=== PATIENT | male | born 1990 | race Caucasian/White ===

== ENCOUNTER → 2018-08-05 | Day surgery (SDC) | payer BC, OTHER ==
[~2018-08-05] MED LIST: Bacitracin Zinc Ointment 30 gm TUBE ONE; Bupivacaine PF 0.5% 30 ML VIAL ONE; Dexamethasone 20 MG/5 ML VIAL ONE; Fentanyl 100 MCG/2 ML VIAL ONE; Ketorolac Tromethamine 30 MG/ML VIAL ONE; Lidocaine 1% PF 5 ML VIAL ONE; Midazolam HCl 2 mg/2 ml Vial ONE; Ondansetron PF 4 MG/2 ML Vial ONE; PROPOFOL 200 MG/20 ML VIAL ONE; Sodium Chloride 0.9% 0 ML ONE
[2018-08-05 13:59] LABS: #Basophils 0.1 thou/uL (0.0-0.2); #Eosinphils 0.6 thou/uL (0.0-0.7); #Lymphocytes 4.5 thou/uL (1.20-3.40); #Monocytes 0.6 thou/uL (0.11-0.59); #Neutrophils 4.4 thou/uL (1.40-6.50); %Basophils 1.1 % (0.0-1.0); %Lymphocytes 43.8 % (21.0-51.0); %Monocytes 5.8 % (0.0-10.0); %Neutrophils 43.3 % (42.0-75.0); Hemoglobin 14.9 g/dL (14.0-18.0); Mean Corpuscular Hemoglobin 31.1 pg (27.0-31.0); Mean Corpuscular Volume 94.1 fL (78.0-98.0); Mean Platelet Volume 6.8 fL (7.4-10.4); Platelet Count 341 thou/uL (130-400); RBC Distribution Width 11.8 % (11.5-14.5); Red Blood Cell (RBC) Count 4.81 mill/uL (4.70-6.10); White Blood Cell (WBC) Count 10.2 thou/uL (4.8-10.8)
[2018-08-05 14:15] LABS: Acetaminophen Less than 6.0 mcg/mL (10.0-30.0); Alcohol Less than 10 mg/dL (Less than 10); Salicylate Less than 8.0 mg/dL (15.0-30.0)
[2018-08-05 14:16] LABS: ALT (SGPT) 20 U/L (8-55); AST (SGOT) 18 U/L (5-34); Albumin 4.4 g/dL (3.5-5.0); Alkaline Phosphatase 61 U/L (40-150); Anion Gap 13 mmol/L (10-20); BUN (Urea Nitrogen) 16 mg/dL (8.9-20.6); Bilirubin, Total 0.4 mg/dL (0.2-1.2); Calc. Creatinine Clearance 0 mL/min (70-130); Calcium 9.5 mg/dL (7.8-10.44); Carbon Dioxide 25 mmol/L (22-29); Chloride 104 mmol/L (98-107); Estimated GFR-MDRD 81; Globulin 3.1 g/dL (2.4-3.5); Glucose 83 mg/dL (70-105); Potassium 4.2 mmol/L (3.5-5.1); Protein, Total 7.5 g/dL (6.0-8.3); Sodium 138 mmol/L (136-145)
--- NOTE | 2018-08-05 20:07 | RAD ---
LEFT THUMB TWO VIEWS: 08/05/18 HISTORY: Fracture left thumb FINDINGS/IMPRESSION: Two spot fluoroscopic intraoperative images of the left thumb demonstrate interval reduction and inte rnal fixation of the comminuted fracture of the proximal phalanx since 07/30/18. POS: KENZIE
--- NOTE | 2018-08-06 08:53 | OP ---
DATE OF PROCEDURE: 08/05/2018 PREOPERATIVE DIAGNOSIS: Displaced 4-part left thumb proximal phalanx fracture with marked angulation and comminution. POSTOPERATIVE DIAGNOSIS: Displaced 4-part left thumb proximal phalanx fracture with marked angulation and comminution with marked interfragmentary comminution in at least 4 different fracture lines and sagittal plane 45 degrees apex palmar angulation. PROCEDURE PERFORMED: Open reduction and internal fixation using complex technique, for 4-part thumb proximal phalanx fracture. These include; 1. Use of interfragmentary screws. 2. Provisional fixation with K-wires. 3. Subtendinous plane dissection to place a small T-plate. ANESTHESIA: 1. General LMA technique. 2. 20 mL of 0.5% Marcaine block; 10 given before incision and 10 given after incision was closed without epinephrine, metacarpophalangeal joint level. ESTIMATED BLOOD LOSS: 10 mL. INDICATIONS: The patient had accident at work, a mechanical device caught his thumb causing the crush fracture almost 4 days ago. DESCRIPTION OF PROCEDURE: After successful general endotracheal anesthesia, limb was prepped and draped. Time-out was done appropriately. C-arm brought into the field, he was given the first part of his block and then we attempted to closed reduction, could not achieve complete correction of the sagittal plane deformity and there was some loss of height, so we decided to do open procedure. We exsanguinated the limb, inflated the tourniquet to 250 mmHg pressure, then made a zigzag incision down to the extensor tendon. Extensor tendon was opened in its midline, so was the periosteum, but this was spared and the periosteal fat layer was preserved. We then visualized the fracture, performed the reduction of the distal 3 fragments to each other, placed a lag screw across them approximately 5 mm short of the joint lines, so we could place a plate as needed distal to that. We irrigated the hematoma. Used complex fracture mechanism to include interfragmentary lag screws, placement of a subtendinous plate, and then used multiple K-wires to hold the fracture anatomic and then we placed a plate avoiding any joint space in the frontal sagittal plane, distal and proximal and palmar. We were able to place 2 screws in the comminuted fracture line, made a way for the comminuted fracture line in midportion and had 4 cortices proximal and 6 cortices distal to the fracture. Then with C-arm fluoroscopy, there was no gross motion and there was excellent position of the final screws and plate. We released the tourniquet, the C-arm was excused, obtained hemostasis. I gave the last 10 of the Marcaine in the same location of the first 10. We closed the subtendinous fat layer with a running 4-0 Vicryl undyed, we closed the extensor mechanism with a running 4-0 Prolene, and we closed the subcutaneous tissues with a running 4-0 Monocryl and then 4-0 nylon was used in interrupted mattress pattern to close the epidermal layer. The patient left the operating room without evidence of anesthetic or operative complication. Job ID: [id number]
== END ==
LOC: ERS 11:24
PROVIDERS: ATTEND Orthopaedic Surgery Hand Surgery
PROC: 0PSS04Z Reposition Left Thumb Phalanx with Internal Fixation Device, Open Approach (ICD-10-PCS; principal; 2018-08-05)
DX: S62.512A Displaced fracture of proximal phalanx of left thumb, initial encounter for closed fracture (principal); F17.210 Nicotine dependence, cigarettes, uncomplicated; W31.9XXA Contact with unspecified machinery, initial encounter; Y99.0 Civilian activity done for income or pay
CPT/HCPCS: 36415; 76000; 80053; 80307; 85025; 86850; 86900; 86901; 99285; C1713; J0690; J1100; J1885; J2001; J2250; J2405; J2704; J3010; J3490; S0020

== ENCOUNTER 2019-03-13 06:22 | Outpatient (CLI) | payer OTHER ==
[2019-03-13 08:43] LABS: #Basophils 0.1 thou/uL (0.0-0.2); #Eosinphils 0.7 thou/uL (0.0-0.7); #Lymphocytes 3.5 thou/uL (1.20-3.40); #Monocytes 0.7 thou/uL (0.11-0.59); #Neutrophils 4.4 thou/uL (1.40-6.50); %Basophils 0.6 % (0.0-1.0); %Lymphocytes 37.1 % (21.0-51.0); %Neutrophils 47.3 % (42.0-75.0); Hemoglobin 15.6 g/dL (14.0-18.0); Mean Corpuscular HGB CONC 34.2 g/dL (32.0-36.0); Mean Corpuscular Hemoglobin 31.9 pg (27.0-31.0); Mean Corpuscular Volume 93.3 fL (78.0-98.0); Mean Platelet Volume 7.2 fL (7.4-10.4); Platelet Count 295 thou/uL (130-400); RBC Distribution Width 11.5 % (11.5-14.5); Red Blood Cell (RBC) Count 4.91 mill/uL (4.70-6.10); White Blood Cell (WBC) Count 9.3 thou/uL (4.8-10.8)
== END 2019-03-13 06:23 | disposition home or self-care (01) ==
LOC: LABBT 06:22
PROVIDERS: ATTEND Orthopaedic Surgery Hand Surgery
DX: Z01.812 Encounter for preprocedural laboratory examination (principal); S62.502A Fracture of unspecified phalanx of left thumb, initial encounter for closed fracture
CPT/HCPCS: 85025

== ENCOUNTER 2019-03-17 09:29 | Day surgery (SDC) | payer OTHER ==
[2019-03-13 08:20] VITALS: BMI 38.7
[2019-03-17] MEDS ORDERED: Dexamethasone 20 MG/5 ML VIAL ONE (10:12)
[2019-03-17] MEDS ORDERED: PROPOFOL 200 MG/20 ML VIAL ONE (10:12)
[2019-03-17] MEDS ORDERED: Ondansetron PF 4 MG/2 ML Vial ONE (10:12)
[2019-03-17] MEDS ORDERED: Lidocaine 1% PF 5 ML VIAL ONE (10:12)
[2019-03-17] MEDS ORDERED: Ketorolac Tromethamine 30 MG/ML VIAL ONE (10:12)
[2019-03-17] MEDS ORDERED: Bacitracin Zinc Ointment 30 gm TUBE ONE (10:55)
[2019-03-17] MEDS ORDERED: Betamet Acet/Betamet Na Ph 30 MG/5 ML VIAL ONE (10:55)
[2019-03-17] MEDS ORDERED: Sodium Chloride 0.9% 10 ML ONE (10:55)
[2019-03-17] MEDS ORDERED: Bupivacaine PF 0.5% 30 ML VIAL ONE (10:55)
[2019-03-17] MEDS ORDERED: Fentanyl 100 MCG/2 ML VIAL ONE (11:11)
[2019-03-17] MEDS ORDERED: Midazolam HCl 2 mg/2 ml Vial ONE (11:11)
--- NOTE | 2019-03-17 14:40 | OP ---
DATE OF PROCEDURE: 03/17/2019 PREOPERATIVE DIAGNOSIS: Left thumb painful suture and suture granuloma. POSTOPERATIVE DIAGNOSIS: Left thumb painful suture and suture granuloma. FINDINGS: 5 mm x 2 mm painful thumb dorsal extension crease at the IPJ level of thumb suture with suture granuloma. PROCEDURES PERFORMED: 1. Excision of painful suture. 2. Excision of painful suture granuloma. SPECIMEN SENT: Suture and suture granuloma, 5 x 2 mm. TOURNIQUET TIME: 5 minutes. ESTIMATED BLOOD LOSS: 2 mL. INDICATIONS: The patient now over 8 months after open reduction and internal fixation of a very complex thumb proximal phalanx fracture, which healed with plate and screws. At the very end of incision, approximately 5 mm of the zigzag suture, but midline in terms of medial and lateral at the interphalangeal joint. He had a 2 mm painful mass, which we felt was a suture granuloma. He did not have hardware problems. DESCRIPTION OF PROCEDURE: After successful general endotracheal anesthesia, the limb was prepped and draped. Time-out was done appropriately. We injected a total of 50 mL of 0.5% Marcaine at the metacarpophalangeal joint level block to include dorsal area. We then exsanguinated the limb, inflated the tourniquet to 250 mmHg pressure. We began with a V-shaped incision, centered on the mass. We extended the residual incision by 5 mm. We carried this through skin and subcutaneous tissue, dissected dermis from all underlying scar. We found the granuloma, and deep to that was a suture oriented obliquely 3 to 4 mm just to the subcutaneous skin. We made a small incision in the skin, removed part of the granuloma, that was protruding deepest into epidermis. The entire granuloma was approximately 5 x 2.5 mm. Once this was done, extensor tendon was intact. We released the tourniquet, obtained hemostasis. We then put 3 mL of Celestone in the wound, with hemostasis obtained, closed the wound with interrupted 4-0 nylon, and put a bulky dressing on the thumb. He left the operating room without evidence of anesthetic or operative complication. Job ID: [id number]
== END 2019-03-17 15:00 | disposition home or self-care (01) ==
LOC: SDC 09:29
PROVIDERS: ATTEND Orthopaedic Surgery Hand Surgery
PROC: 0JCK0ZZ Extirpation of Matter from Left Hand Subcutaneous Tissue and Fascia, Open Approach (ICD-10-PCS; principal; 2019-03-17)
DX: T81.89XA Other complications of procedures, not elsewhere classified, initial encounter (principal); F17.210 Nicotine dependence, cigarettes, uncomplicated
CPT/HCPCS: 88304; J0690; J0702; J1100; J1885; J2001; J2250; J2405; J2704; J3010; J3490; S0020